=== PATIENT | male | born 1990 | race Caucasian/White ===

== ENCOUNTER 2019-06-14 16:47 | Emergency (ER) | payer BC ==
[2019-06-14 17:01] VITALS: BP 125/74
--- NOTE | 2019-06-14 17:17 | UC ---
Complaint Male HPI - HPI Summary HPI Summary: Patient is a 29-year-old male here with a rash on his testicles. Patient works outdoors for a living. For the past 3 days, patient's had itchiness to his groin and testicles. Today, patient noticed a small, erythematous lesion to his left scrotum. This lesion is not painful. Patient has no dysuria, hematuria, penile discharge. Patient is in a monogamous relationship with his . Medications reviewed - History of Current Complaint Chief Complaint: UCGU Stated Complaint: SORE NEAR GROIN Time Seen by Provider: 06/14/19 16:58 Hx Obtained From: Patient Onset/Duration: Gradual Onset Pain Intensity: 7 - Allergies/Home Medications Allergies/Adverse Reactions: Allergies Allergy/AdvReac Type Severity Reaction Status Date / Time No Known Allergies Allergy Verified 06/14/19 17:02 Home Medications: Home Medications Ibuprofen TAB* [Advil TAB*] 200 mg PO Q6H PRN 06/14/19 [History Confirmed ] PMH/Surg Hx/FS Hx/Imm Hx Previously Healthy: Yes - Surgical History Surgical History: Yes Surgery Procedure, Year, and Place: appy - Family History Known Family History: Positive: Non-Contributory - Social History Alcohol Use: None Substance Use Type: None Smoking Status (MU): Never Smoked Tobacco Review of Systems All Other Systems Reviewed And Are Negative: Yes Constitutional: Negative: Fever Skin: Positive: Rash Eyes: Negative: Blurred Vision Respiratory: Negative: Shortness Of Breath, Cough Cardiovascular: Negative: Chest Pain Gastrointestinal: Negative: Abdominal Pain, Vomiting, Diarrhea Genitourinary: Negative: Dysuria, Hematuria, Frequency Physical Exam - Summary Physical Exam Summary: Vital Signs Reviewed: Yes A+Ox3, no distress Eyes: Conjunctiva Clear ENT: Hearing grossly normal neck: supple Respiratory: Positive: No respiratory distress, No accessory muscle use Cardiovascular: skin color reflect adequate perfusion Musculoskeletal Exam: JACOBSEN x 4 without difficulty : No inguinal lymphadenopathy. No penile lesions. No penile discharge. Small, erythematous lesion to the left scrotum that is not warm or tender. Neurological: Positive: Alert, ambulatory without difficulty Triage Information Reviewed: Yes Vital Signs: Initial Vital Signs Temp 99.2 F 06/14/19 16:55 Pulse 84 06/14/19 16:55 Resp 16 06/14/19 16:55 BP 125/74 08/14/19 16:55 Pulse Ox 98 06/14/19 16:55 Complaint Male Course/Dx - Course Course Of Treatment: Patient is here with a likely fungal infection on his scrotum due to working outside in a warm/moist environment. Patient was given ways to decrease exposure to moisture lazing per use and Goldbond powder. Patient was prescribed clotrimazole for his fungal infection. Patient denies any risky sexual behavior and his rash is not consistent with an STD. - Differential Dx/Diagnosis Differential Diagnosis/HQI/PQRI: Other - Urethritis, syphilis, intertrigo, fungal infection, trauma Provider Diagnosis: Fungal infection of skin Discharge - Sign-Out/Discharge Documenting (check all that apply): Patient Departure All imaging exams completed and their final reports reviewed: No Studies - Discharge Plan Condition: Stable Disposition: HOME Prescriptions: Clotrimazole 1% CREAM* [Clotrimazole 1%*] 1 applic TOPICAL BID 10 Days #1 tube Referrals: Aury Potts [Primary Care Provider] - Additional Instructions: Please use the prescribed cream Please buy Goldbond powder Please wear briefs while working - Billing Disposition and Condition Condition: STABLE Disposition: Home
== END 2019-06-14 17:19 | disposition home or self-care (01) ==
LOC: UCEAST 16:47
DX: B36.9 Superficial mycosis, unspecified (principal)
CPT/HCPCS: 99212; G0463